=== PATIENT | male | born 1975 | race African-American/Black ===

== ENCOUNTER 2020-04-20 08:40 | Emergency (ER) | payer MEDICAID ==
[~2020-04-20] VITALS: Ht 190.5 cm; Wt 104.3 kg
--- NOTE | 2020-04-20 08:54 | Emergency Room Report ---
History of Present Illness General Chief Complaint: Overdose Source: Patient Present Illness HPI Disclaimer: Please note that this report is being documented using DRAGON technology. This can lead to erroneous entry secondary to incorrect interpretation by the dictating instrument. HPI: 44-year-old male presents by EMS for evaluation of inability to sleep after using methamphetamines. Patient is awake, alert states he has been using methamphetamine daily for approximately 1 week last use about 12 hours ago. Unable to sleep overnight and feels tired but otherwise denies any acute complaints. Denies fever, chills, chest pain, shortness of breath, nausea, vomiting, diarrhea. Patient has a PICC line in his left upper extremity for which he receives IV antibiotics at [facility] for a slow healing right heel injury. Denies any new trauma to that region has been wearing the postop boot as instructed. Denies alcohol use, other substance use. Denies suicidality or homicidality. States he has not followed up with psychiatrist and no longer taking psychiatric medications. 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 EOMI. Cardiovascular: RRR. S1 and S2 normal. No murmur appreciated Resp: Normal work of breathing. No cough, wheezing or crackles appreciated Abdomen: Abdomen is soft, nondistended. Nontender Skin: Intact. No abrasions, laceration or rash over the exposed skin MSK: Normal tone and bulk. Moving all extremities. No obvious deformity. PICC line in left upper extremity. Patient was wearing a postoperative boot on his right leg. There is a 1 x 1 cm superficial ulceration with clean margins over the right heel appears to be healing well without signs of secondary infection, no edema, no erythema, no purulent drainage. Neuro: Awake and alert. Mentating appropriately. Medical Decision Making Diagnostic Impression: Primary Impression: Methamphetamine abuse ER Course Is a 44-year-old male presenting for evaluation of fatigue and insomnia in the setting of recent methamphetamine abuse. Otherwise well-appearing without other complaints. The chronic wound on his right heel appears to be healing well and the patient has been receiving antibiotics at [facility] through the PICC line as scheduled. No signs of acute infection. Provided patient something to eat and drink and he was able to rest in the ED. He was sleeping comfortably on my reevaluation. At this time, he does not require emergent labs or imaging. He arrives with stable vital signs and no other complaints aside from difficulty sleeping in the setting of methamphetamine use which is to be expected. Ambulating with a steady gait with the use of his postop boot. Patient stable for outpatient follow-up. Last Vital Signs Date Time Temp Pulse Resp B/P (MAP) Pulse Ox O2 Delivery O2 Flow Rate FiO2 04/20/20 08:35 99.1 110 20 145/93 (110) 99 Room Air Disposition: HOME, SELF-CARE Condition: Stable Skyler Ramirez MD Apr 20, 2020 08:54
[2020-04-20 08:56] VITALS: BP 145/93
--- NOTE | 2020-04-20 08:59 | NUR ---
ED Nurse Note:pt. was BIBA from home with c/o not feeling well after he was smaking crystal meth foe week, pt. is A/Ox4 ambulatory, VSS, no suisidal thoughts or galusinations present , skin is intact no c/o pain at this time, pt. was seen by ER MD and food was provided for him
[2020-04-20 09:55] VITALS: BP 141/89
--- NOTE | 2020-04-20 09:56 | NUR ---
ED Nurse Note:pt. was cleared for d/c by ER MD, he received d/c instructions and left er with steady gait and all personal belongings
== END 2020-04-20 10:00 | disposition home or self-care (01) ==
LOC: EDBD 08:40 → EMR 09:15
DX: F15.10 Other stimulant abuse, uncomplicated (principal)
CPT/HCPCS: 99282